=== PATIENT | male | born 1990 | race Caucasian/White ===

== ENCOUNTER 2020-09-19 18:59 | Emergency (ER) | payer SELFPAY ==
[~2020-09-19] VITALS: Ht 175.3 cm; Wt 68.0 kg
[2020-09-19 19:03] VITALS: BP 145/85
--- NOTE | 2020-09-19 19:12 | NUR ---
PT TAKEN TO BED 2
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
--- NOTE | 2020-09-19 19:30 | NUR ---
PATIENT TAKEN TO CT VIA W.C.
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
[2020-09-19] MEDS ORDERED: KETOROLAC 60 MG/2 ML VIAL IM ONE (19:35)
[2020-09-19] MEDS ORDERED: AMOX1TAB8 PO (21:19)
[2020-09-19] MEDS ORDERED: NAPR-54 PO (21:19)
--- NOTE | 2020-09-19 21:21 | NUR ---
Dr. Ramos examining patient.
--- NOTE | 2020-09-19 21:23 | NUR ---
Patient discharged with v/s stable. Written and verbal after care instructions given and explained BY DR. KRAMER. Patient alert, oriented and verbalized understanding of instructions. Ambulatory with steady gait. All questions addressed prior to discharge BY DR. KRAMER. ID band removed. Patient advised to follow up with PMD. Rx of NAPROXEN AND AUGMENTIN given. Patient educated on indication of medication including possible reaction and side effects. Opportunity to ask questions provided and answered.
== END 2020-09-19 21:23 | disposition home or self-care (01) ==
LOC: MED 18:59
DX: S02.2XXA Fracture of nasal bones, initial encounter for closed fracture (principal); J34.9 Unspecified disorder of nose and nasal sinuses; F17.210 Nicotine dependence, cigarettes, uncomplicated
CPT/HCPCS: 70450; 70486; 96372; 99285; J1885